=== PATIENT | male | born 1970 | race Caucasian/White ===

== ENCOUNTER 2019-07-24 11:45 | Emergency (ER) | payer OTHER ==
[~2019-07-24] VITALS: Ht 172.7 cm; Wt 79.5 kg
[2019-07-24] MEDS ORDERED: fentaNYL INJECTION 100 MCG/2 ML AMP ONE (11:58)
[2019-07-24] MEDS ORDERED: TETANUS,DIPTH,PERTUSS P/F (BOOSTRIX) 0.5 ML VIAL IM ONE ×2 (11:58→12:15)
[2019-07-24 12:12] LABS: HEMOGLOBIN 15.2 G/DL (13.3-17.7); MEAN PLATELET VOLUME 8.5 FL (7.4-10.4); RED CELL DISTRIBUTION WIDTH 13.1 % (10.0-14.5); WHITE BLOOD COUNT 7.3 10^3/uL (4.3-11.0)
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
[2019-07-24] MEDS ORDERED: ceFAZolin 2 GM/50 ML NS 50 ML IV ONE (12:15)
[2019-07-24] MEDS ORDERED: fentaNYL INJECTION 100 MCG/2 ML AMP IVP PRN ×2 (12:15→12:55)
[2019-07-24 12:27] LABS: ALANINE AMINOTRANSFERASE 32 U/L (0-55); ALBUMIN 4.4 GM/DL (3.2-4.5); ALKALINE PHOSPHATASE 98 U/L (40-136); BILIRUBIN,DIRECT 0.2 MG/DL (0.0-0.3); BILIRUBIN,INDIRECT 0.2 MG/DL; BILIRUBIN,TOTAL 0.4 MG/DL (0.1-1.0); BUN/CREATININE RATIO 16; CARBON DIOXIDE 26 MMOL/L (21-32); CHLORIDE 105 MMOL/L (98-107); CREATININE SERUM 0.87 MG/DL (0.60-1.30); GFR ESTIMATED > 60; GLUCOSE 98 MG/DL (70-105); MAGNESIUM 2.2 MG/DL (1.6-2.4); PHOSPHORUS 2.6 MG/DL (2.3-4.7); POTASSIUM 3.8 MMOL/L (3.6-5.0); SODIUM 140 MMOL/L (135-145)
[2019-07-24] MEDS ORDERED: IOHEXOL 350 MG/ML 100 ML (OMNIPAQUE 350) VIAL IV ONE (12:45)
[2019-07-24] MEDS ORDERED: HOLD METFORMIN - RECEIVED CONTRAST 20 ML VIAL IV SCH (12:45)
[2019-07-24] MEDS ORDERED: NS 100 ML (IVPB) BAG IV ONE (12:45)
[2019-07-24 12:49] LABS: FIBRIN DEGRADATION PRODUCTS 7.98 UG/ML (0.00-0.49); INR 0.9 (0.8-1.4); PROTHROMBIN TIME PATIENT 12.6 SEC (12.2-14.7)
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
--- NOTE | 2019-07-24 13:35 | Diagnostic Imaging Report ---
INDICATION: Trauma EXAMINATION: Pelvis 07/24/2019 FINDINGS/MPRESSION:Single view of the the pelvis demonstrates no evidence for fracture or dislocation. Contrast is seen in the distal ureters and in the urinary bladder. There are hyperdensities noted within the right lateral aspect of the pelvis superimposed upon the urinary bladder. Correlation is made to the CT of the abdomen and pelvis obtained on the same date. Not mentioned on the CT report are several hyperdensities within the right posterior buttock region. These may overlie the patient or may extend into the subcutaneous soft tissues with smaller similar findings on the left. Clinical correlation with physical examination recommended. Dictated by: Dictated on workstation # [id number]
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
[2019-07-24 13:53] LABS: AMYLASE 35 U/L (25-125); LIPASE 19 U/L (8-78)
[2019-07-24 14:24] LABS: BILIRUBIN,URINE NEGATIVE (NEGATIVE); CLARITY,URINE CLEAR; COLOR,URINE YELLOW; GLUCOSE, URINE (UA) NEGATIVE (NEGATIVE); KETONES,URINE NEGATIVE (NEGATIVE); LEUKOCYTE ESTERASE ,URINE NEGATIVE (NEGATIVE); NITRITE,URINE NEGATIVE (NEGATIVE); PH,URINE 7.5 (5-9); PROTEIN,URINE TRACE (NEGATIVE)
[2019-07-24 14:33] LABS: BACTERIA,URINE TRACE /HPF; RBC,URINE 0 /HPF; WBC,URINE 0 /HPF
[2019-07-24 14:38] LABS: AMPHETAMINE SCREEN, URINE POSITIVE (NEGATIVE); BARBITURATE SCREEN URINE NEGATIVE (NEGATIVE); BENZODIAZEPINES SCREEN URINE NEGATIVE (NEGATIVE); CANNABINOID SCREEN, URINE NEGATIVE (NEGATIVE); COCAINE SCREEN URINE NEGATIVE (NEGATIVE); METHADONE STAT NEGATIVE (NEGATIVE); METHAMPHETAMINE SCREEN URINE S NEGATIVE (NEGATIVE); OPIATE SCREEN URINE NEGATIVE (NEGATIVE); OXYCODONE STAT NEGATIVE (NEGATIVE); PROPOXYPHENE STAT NEGATIVE (NEGATIVE); TRICYCLIC ANTIDEPRESSANTS SCRE NEGATIVE (NEGATIVE)
[2019-07-24 14:50] VITALS: BP 133/104
== END 2019-07-24 14:50 ==
LOC: ER 11:48
DX: S82.851B Displaced trimalleolar fracture of right lower leg, initial encounter for open fracture type I or II (principal); S50.811A Abrasion of right forearm, initial encounter; F15.10 Other stimulant abuse, uncomplicated; F19.10 Other psychoactive substance abuse, uncomplicated; F17.200 Nicotine dependence, unspecified, uncomplicated; R40.2142 Coma scale, eyes open, spontaneous, at arrival to emergency department; R40.2252 Coma scale, best verbal response, oriented, at arrival to emergency department; R40.2362 Coma scale, best motor response, obeys commands, at arrival to emergency department; Z88.0 Allergy status to penicillin; Z87.81 Personal history of (healed) traumatic fracture; Z23 Encounter for immunization; V89.2XXA Person injured in unspecified motor-vehicle accident, traffic, initial encounter
CPT/HCPCS: 36415; 51702; 70450; 70486; 71045; 71260; 72125; 72128; 72131; 72170; 73600; 73620; 74177; 80048; 80076; 80306; 80320; 81000; 82150; 83605; 83690; 83735; 84100; 84484; 85027; 85379; 85384; 85610; 85730; 86850; 86900; 86901; 86920; 90471; 90715; 93005; 93041; 96365; 96375; 96376